=== PATIENT | male | born 1960 | race Caucasian/White ===

== ENCOUNTER 2019-01-18 20:31 | Emergency (ER) | payer OTHER ==
--- NOTE | 2019-01-18 20:39 | PDOC ---
History of Present Illness - History of Present Illness Initial Comments: 01/18/19 22:16 58yo M hx HLD, HTN, and CAD on aspirin presents from home c/o pain in L shoulder x2wks and L neck swelling x2days. Pt states L shoulder pain started 2 weeks ago gradually, constant, stabbing type in anterior shoulder, not improved by motrin or tylenol or advil. Pt went to Ortho 2 weeks ago and X-Ray was taken and was negative. Pain has gradually gotten worse the last 2 days and pt states he now can't even move his shoulder/arm. Denies heavy lifting, trauma, repetitive movements, or falls. 3 days ago the same pain began in his R anterior shoulder, but milder, without any trauma/inciting event. Then 2 days ago pt woke up with a swelling and pain in his L neck, cough and some spitting up, F/C, sore throat, sneezing, runny nose, hoarse voice, and congestion. Endorses chronic intermittent L-sided burning chest pain lasting 2-3 minutes after eating, last happened yesterday. Pt had nuclear stress test 2 weeks ago. Endorses dysuria x1wk, chronic unchanged back pain, and 3mos of b/l feet and hand tingling that is constant better when he shakes them. Denies sick contacts , recent travel, abdominal pain, MCNEIL, dizziness, pain with swallowing, inability to swallow secretions, N/V, SOB, hematuria, blood in stool, D/C, focal weakness. Pt states he recently got laid off from his job making [employer] Lives in [place]. Endorses hx of smoking, quit 8yrs ago. PCP - Fredo Chase <Paulette Chino - Last Filed: 01/18/19 22:16> <Haile Aquino I - Last Filed: 01/18/19 23:11> - General Chief Complaint: Pain, Acute Stated Complaint: PAIN IN LEFT SHOULDER, NECK AND ARM X 2 WEEKS Time Seen by Provider: 01/18/19 20:37 Past History <Paulette Chino - Last Filed: 01/18/19 22:16> <Haile Aquino I - Last Filed: 01/18/19 23:11> - Past Medical History Allergies/Adverse Reactions: Allergies Allergy/AdvReac Type Severity Reaction Status Date / Time Penicillins Allergy Verified 01/18/19 20:33 Home Medications: Ambulatory Orders Unobtainable 01/18/19 Review of Systems - Review of Systems Comments:: 01/18/19 22:22 Constitutional: Positive for chills, fever, fatigue. HENT: Positive for sore throat, hoarse voice, rhinorrhea, congestion. Eyes: Negative for visual disturbance. Respiratory: Positive for cough. Negative for shortness of breath, and wheezing. Cardiovascular: Positive for chest pain. Negative for palpitations, and leg swelling. Gastrointestinal: Negative for abdominal pain, blood in stool, constipation, diarrhea, nausea, and vomiting. Genitourinary: Positive for dysuria. Negative for flank pain, and hematuria. Musculoskeletal: Positive for back pain and L-sided neck pain and b/l shoulder pain. Negative for myalgias. Skin: Negative for rash. Neurological: Positive for numbness/tingling of b/l hands and feet. Negative for light-headedness, dizziness, syncope, weakness, and headaches. Psychiatric/Behavioral: Negative for behavioral problems and confusion. <Paulette Chino - Last Filed: 01/18/19 22:16> *Physical Exam - Physical Exam Comments: 01/18/19 22:25 Gen: Alert, NAD, comfortable-appearing. HEENT: PERRL, EOMI, MMM, NCAT. No conjunctival pallor. Sclera are non-icteric + mild erythema but no exudates in oropharynx, uvula midline, tonsils nonedematous + hard, mobile, tender lymphadenopathy along L anterior cervical chain. CV: Regular rate and rhythm. No murmurs, rubs, or gallops. PULM: No resp distress. CTAB, no wheezes, rales, or rhonchi. ABD: soft, NT/ND, no rebound tenderness or guarding, no CVA tenderness. BACK: No TTP of c/t/l-spine. No step-offs or deformities. MSK: No bony deformities. 2+ pulses in all extremities. L shoulder: diffuse TTP, decreased ROM 2/2 discomfort, distally neurovascularly intact R shoulder: mild TTP anteriorly, full ROM, distally neurovascularly intact NEURO: AAOx3. PERRL. CN 2-12 intact. 5/5 strength in all extremities. Sensation to light touch intact in all extremities. No pronator drift. No dysmetria. No dysdiadochokinesia. No abnormal nystagmus. No skew deviation. Normal gait. EXTREMITIES: No cyanosis. No clubbing. No edema. No calf tenderness. PSYCH: Affect slightly abnormal. Normal mood and thought pattern. SKIN: Warm and dry. Normal capillary refill. No rashes. No jaundice. <Paulette Chino - Last Filed: 01/18/19 22:16> - Vital Signs Last Vital Signs Temp Pulse Resp BP Pulse Ox 98.3 F 80 15 157/98 99 01/18/19 20:34 01/18/19 20:34 01/18/19 20:34 01/18/19 20:34 01/18/19 20:34 <Haile Aquino I - Last Filed: 01/18/19 23:11> Heart Score/ECG Review - ECG Impressions Comment:: 01/18/19 21:53 NSR, 64bpm, normal axis, no GRACE/TWIs <Paulette Chino - Last Filed: 01/18/19 22:16> ED Treatment Course - LABORATORY CBC & Chemistry Diagram: 01/18/19 21:30 01/18/19 21:30 <Paulette Chino - Last Filed: 01/18/19 22:16> - LABORATORY CBC & Chemistry Diagram: 01/18/19 21:30 01/18/19 22:00 - ADDITIONAL ORDERS Additional order review: Laboratory Results 01/18/19 01/18/19 01/18/19 22:00 22:00 21:30 Sodium 137 Cancelled Potassium 4.9 Cancelled Chloride 105 Cancelled Carbon Dioxide 23 Cancelled Anion Gap 9 Cancelled BUN 25.0 H Cancelled Creatinine 0.7 Cancelled Est GFR (CKD-EPI)AfAm 119.72 Cancelled Est GFR (CKD-EPI)NonAf 103.30 Cancelled Random Glucose 84 Cancelled Calcium 9.6 Cancelled Total Bilirubin 1.4 H Cancelled AST 33 Cancelled ALT 20 Cancelled Alkaline Phosphatase 67 Cancelled Creatine Kinase 125 Cancelled Troponin I < 0.03 Total Protein 7.6 Cancelled Albumin 4.3 Cancelled Urine Color Urine Appearance Urine pH Urine Protein Urine Glucose (UA) Urine Ketones Urine Blood Urine Nitrite Urine Bilirubin Urine Urobilinogen Ur Leukocyte Esterase Urine RBC Urine WBC Ur Transition Epith Cell 01/18/19 01/18/19 21:30 21:16 Sodium Potassium Chloride Carbon Dioxide Anion Gap BUN Creatinine Est GFR (CKD-EPI)AfAm Est GFR (CKD-EPI)NonAf Random Glucose Calcium Total Bilirubin AST ALT Alkaline Phosphatase Creatine Kinase Troponin I Cancelled Total Protein Albumin Urine Color Yellow Urine Appearance Clear Urine pH 5.5 Urine Protein Negative Urine Glucose (UA) Negative Urine Ketones Negative Urine Blood 1+ H Urine Nitrite Negative Urine Bilirubin Negative Urine Urobilinogen 0.2 Ur Leukocyte Esterase Negative Urine RBC 5-10 Urine WBC 0-2 Ur Transition Epith Cell Rare 01/18/19 21:30 RBC 4.45 MCV 94.2 MCHC 33.5 RDW 12.1 MPV 8.3 Neutrophils % 60.3 Lymphocytes % 22.8 Monocytes % 11.0 H Eosinophils % 5.1 H Basophils % 0.8 - RADIOLOGY Radiology Studies Ordered: Category Date Time Status CHEST PA & LAT [RAD] Stat Radiology 01/18/19 21:07 Taken - Medications Given in the ED: ED Medications Discontinued Medications Generic Name Dose Route Start Last Admin Trade Name Freq PRN Reason Stop Dose Admin Sodium Chloride 1,000 mls @ 1,000 mls/hr 01/18/19 21:12 01/18/19 21:40 Normal Saline - IV 01/18/19 22:11 1,000 mls/hr .Q1H ONE Administration Ketorolac Tromethamine 30 mg 01/18/19 21:12 01/18/19 21:40 Toradol Injection - IVPUSH 01/18/19 21:13 30 mg ONCE ONE Administration <Haile Aquino I - Last Filed: 01/18/19 23:11> Medical Decision Making - Medical Decision Making 58yo M hx HLD, HTN, and CAD on aspirin presents from home with pain in L shoulder x2wks, R shoulder x3 days, and URI-like sx x2days. Hemodynamically stable, afebrile, TTP of b/l shoulders with decreased ROM of L shoulder 2/2 pain , mild erythema of posterior oropharynx with L anterior cervical lymphadenopathy. Lymphadenopathy, rhinorrhea, cough, and sore throat most likely viral pharangitis or URI - no exudates or fever concerning for strep. Shoulder pain most likely musculoskeletal - low concern for fx or dislocation due to lack of trauma/inciting event - evaluate in CXR. Also consider arthritis or other musculoskeletal etiologies. Low concern for ACS/WV, but due to RFs and CP, r/o with EKG and cardiac profile. R/o UTI with UA due to dysuria. -EKG -CBC, CMP, cardiac profile, UA/UC, BCx -CXR (also shoulders) -Toradol for pain -IVF -Dispo: pending w/u 01/18/19 21:53 EKG reviewed. NSR, 64bpm, normal axis, no GRACE/TWIs <Paulette Chino - Last Filed: 01/18/19 22:16> *DC/Admit/Observation/Transfer <Paulette Chino - Last Filed: 01/18/19 22:16> - Discharge Dispostion Decision to Admit order: No <Haile Aquino I - Last Filed: 01/18/19 23:11> Diagnosis at time of Disposition: Viral syndrome, Left shoulder pain - Discharge Dispostion Disposition: HOME Condition at time of disposition: Stable - Patient Instructions Additional Instructions: For the sore throat and body aches take Tylenol or Motrin. For the shoulder take the medication your doctor prescribed and follow-up with the orthopedist. Return to the emergency department immediately with ANY new, persistent or worsening symptoms. Continue any medications as previously prescribed by your physician. You should follow up with your primary doctor as soon as possible regarding today's emergency department visit. . Please make sure your doctor reviews the results of your emergency evaluation. Thank you for coming to the Emergency Department today for your care. It was a pleasure to see you today. Please note that your evaluation is INCOMPLETE until you follow-up with your doctor.
[2019-01-18 20:46] VITALS: BP 157/98; PULSE 80; TEMP 98.3; BMI 28.3
[2019-01-18] MEDS ORDERED: KETOROLAC TROMETHAMINE 30 MG/1 ML VIAL IVPUSH ONE (21:12)
[2019-01-18] MEDS ORDERED: SODIUM CHLORIDE 1,000 ML IV ONE (21:12)
[2019-01-18] MEDS ORDERED: KETOROLAC TROMETHAMINE 30 MG/1 ML VIAL ONE (21:36)
[2019-01-18 21:39] LABS: EPITHELIAL CELLS RARE /hpf
[2019-01-18 21:43] LABS: BASO % 0.8 % (0-2.0); EOS % 5.1 % (0-4.5); HEMATOCRIT 41.9 % (35.4-49); LYMPH % 22.8 % (8-40); MCH 31.5 pg (25.7-33.7); MCHC 33.5 g/dl (32.0-35.9); MEAN CELL VOLUME 94.2 fl (80-96); MEAN PLT VOLUME 8.3 fl (7.5-11.1); NEUT % 60.3 % (42.8-82.8); PLATELET COUNT 291 K/MM3 (134-434); RBC 4.45 M/mm3 (4.00-5.60); RDW 12.1 % (11.9-15.9); WHITE BLOOD COUNT 11.6 K/mm3 (4.0-10.8)
--- NOTE | 2019-01-18 21:47 | PDOC ---
Documentation entered by Bashir Verdugo SCRIBE, acting as scribe for Haile Aquino MD. Haile Aquino MD: This documentation has been prepared by the Lucina cartwright Andrys, SCRIBE, under my direction and personally reviewed by me in its entirety. I confirm that the documentation accurately reflects all work, treatment, procedures, and medical decision making performed by me. Attending Attestation - Resident Resident Name: UmameiPaulette - ED Attending Attestation I have performed the following: I have examined & evaluated the patient, The case was reviewed & discussed with the resident, I agree w/resident's findings & plan, Exceptions are as noted - HPI HPI: 01/18/19 21:41 The patient is a 58 year old male with a significant past medical history of HTN , HLD, and CAD who present to the ED with left shoulder pain, cold like symptoms , and left neck swelling. Patient states he developed progressively worsening left shoulder pain 2 weeks ago. He states the left shoulder pain is stabbing in sensation and that he cannot move his left arm secondary to pain. Patient saw orthopedists and had a negative XRay of the left shoulder. He states he developed pain to his right shoulder 3 days ago. Denies recent trauma, fall or injury. 2 days ago, patient developed swelling to the left side of his neck, cough, subjective fever, chills, sore throat, hoarse voice and congestion. He also reports and episode of intermittent chest pain that lasted 3 minutes before residing last night. Denies hematuria or change in urinary output. Denies back pain. Denies any other symptoms. PAST MEDICAL HISTORY: HTN, HLD, and CAD PAST SURGICAL HISTORY: no significant history FAMILY HISTORY: no pertinent history SOCIAL HISTORY: Pt lives with family and is employed. MEDICATIONS: reviewed ALLERGIES: As per nursing notes General: + fever, chills. No weakness, no weight loss HEENT: + sore throat, hoarse voice, congestion. No change in vision. No ear pain Cardiovascular: No chest pain or shortness of breath Respiratory: + cough. No wheezing. Gastrointestinal: no nausea, vomiting, diarrhea or constipation, No rectal bleeding Genitourinary: No dysuria, hematuria, or frequency Musculoskeletal: + B/L shoulder pain, neck swelling. Neurologic: No headache, vertigo, dizziness or loss of consciousness Psychiatric: nor depression Skin: No rashes or easy bruising Endocrine: no increased thirst or abnormal weight change Allergic: no skin or latex allergy All other systems reviewed and normal - Physicial Exam PE: 01/18/19 21:41 General: Well-nourished well-developed individual, no acute distress HEENT: Throat: + mild erythema in the posterior oropharynx. Normal, tonsils normal, no exudate Neck: Supple, no meningeal signs, no lymphadenopathy Eyes::Pupils equal reactive and round, extraocular motion intact Chest: Nontender to palpation Cardiac: S1-S2 normal, regular rate and rhythm, no murmurs rubs or gallops Respiratory: Lungs clear to auscultation bilateral Abdomen: Soft, nondistended, normal bowel sounds, nontender to palpation diffusely Extremities: + Left shoulder there is tenderness diffusely on palpation, decreased ROM secondary to discomfort. Right shoulder, mild tenderness on palpation anteriorly. Warm, dry, no cyanosis, clubbing, or edema Skin: No rashes Neuro: Alert and oriented x3, nonfocal exam, grossly intact, normal gait Psych: Normal mood and affect - Medical Decision Making 01/18/19 21:45 Assessment and plan: This is a 58-year-old male who comes in with multiple complaints. Patient's most prominent complaints are bilateral shoulder pain left greater than right that is been going on for 2 weeks. Patient otherwise is complaining of upper respiratory/viral type symptoms. Workup was initiated including EKG, chest x-ray, CBC, comp, cardiac enzymes 01/18/19 23:15 Patient's workup was essentially normal he had a normal EKG, CBC had a mildly elevated white count with a monocytosis most likely secondary to a viral etiology.
[2019-01-18 22:50] LABS: ALBUMIN 4.3 g/dl (3.4-5.0); BILIRUBIN,TOTAL 1.4 mg/dl (0.2-1); CALCIUM 9.6 mg/dl (8.5-10); CREATININE 0.7 mg/dl (0.55-1.3); TOT PROT 7.6 g/dl (6.4-8.2)
[2019-01-18 22:53] LABS: POTASSIUM 4.9 mmol/L (3.5-5.1)
--- NOTE | 2019-01-19 11:53 | EKG ---
Test Reason : Blood Pressure : / mmHG Vent. Rate : 064 BPM Atrial Rate : 064 BPM P-R Int : 172 ms QRS Dur : 096 ms QT Int : 426 ms P-R-T Axes : 050 039 013 degrees QTc Int : 439 ms NORMAL SINUS RHYTHM NORMAL ECG NO PREVIOUS ECGS AVAILABLE Confirmed by CELSO BAÑUELOS, SANDRA ([id number]) on 01/19/2019 11:53:30 AM Referred By: CALEB CAMARENA Confirmed By:SANDRA HOUSTON MD
== END 2019-01-18 23:27 | disposition home or self-care (01) ==
LOC: FER 20:31
PROC: 3E0333Z Introduction of Anti-inflammatory into Peripheral Vein, Percutaneous Approach (ICD-10-PCS; principal; 2019-01-18)
PROC: 3E0337Z Introduction of Electrolytic and Water Balance Substance into Peripheral Vein, Percutaneous Approach (ICD-10-PCS; 2019-01-18)
DX: B34.9 Viral infection, unspecified (principal); M25.512 Pain in left shoulder; I10 Essential (primary) hypertension; I25.10 Atherosclerotic heart disease of native coronary artery without angina pectoris; E78.5 Hyperlipidemia, unspecified
CPT/HCPCS: 36415; 71046-TC-FY; 80053; 81003; 81015; 82550; 84484; 85025; 87040; 87086; 93005; 99282-25; J7030

== ENCOUNTER 2022-03-27 08:04 | Day surgery (SDC) | payer OTHER ==
[2022-03-23 11:46] VITALS: BMI 32.7
[2022-03-27] MEDS ORDERED: CYCLOPENTOLATE HCL 1% OPHTH SOLN 2 ML BOTTLE ONE (08:14)
[2022-03-27] MEDS ORDERED: TROPICAMIDE 1% OPHTH SOLN 15 ML BOTTLE ONE (08:14)
[2022-03-27] MEDS ORDERED: KETOROLAC TROMETHAMINE 0.5% EYE DROP 1 DROP DROPS ONE (08:14)
[2022-03-27] MEDS ORDERED: PHENYLEPHRINE 2.5% OPHTH SOLN 15 ML BOTTLE ONE (08:14)
[2022-03-27] MEDS ORDERED: OFLOXACIN 0.3% OPHTHALMIC SOLUTION 5 ML BOTTLE ONE (08:14)
[2022-03-27] MEDS: OFLOXACIN 0.3% OPHTHALMIC SOLUTION 5 ML BOTTLE OD SCH ×3 (08:35→08:45)
[2022-03-27] MEDS: PHENYLEPHRINE 2.5% OPHTH SOLN 15 ML BOTTLE OD SCH ×3 (08:35→08:45)
[2022-03-27] MEDS: KETOROLAC TROMETHAMINE 0.5% EYE DROP 1 DROP DROPS OD SCH ×3 (08:35→08:45)
[2022-03-27] MEDS: TROPICAMIDE 1% OPHTH SOLN 15 ML BOTTLE OD SCH ×3 (08:35→08:45)
[2022-03-27] MEDS: CYCLOPENTOLATE HCL 1% OPHTH SOLN 2 ML BOTTLE OD SCH ×3 (08:35→08:45)
[2022-03-27] MEDS ORDERED: POVIDONE-IODINE 5% OPHTHALMIC PREP 30 ML SOLUTION ONE (08:58)
[2022-03-27] MEDS ORDERED: BACITRACIN/POLYMYXIN OPH OINT 3.5 GM TUBE ONE (08:58)
[2022-03-27] MEDS ORDERED: TETRACAINE 0.5% OPHTH SOLN 2 ML BOTTLE ONE (08:58)
[2022-03-27] MEDS ORDERED: BETAXOLOL HCL 0.25% OPHTHALMIC 10 ML DROPSBTL ONE (08:58)
[2022-03-27] MEDS ORDERED: EPI-SHUGARCAINE (EPINEPHRINE 0.025% & LIDOCAINE-PF 0.75%) 4ML ONE (08:58)
[2022-03-27] MEDS ORDERED: NEO/POLYMYX B SULF/DEXAMETH OPHTHALMIC 5ML BOTTLE ONE (08:59)
[2022-03-27] MEDS ORDERED: MIDAZOLAM HCL 2 MG/2 ML SINGLE DOSE VIAL ONE (10:36)
[2022-03-27] MEDS ORDERED: ACETAMINOPHEN 325 MG TABLET (FP) PO PRN (11:28)
[2022-03-27 11:35] VITALS: PULSE 68; RESP 18; TEMP 97.1
[2022-03-27 11:55] VITALS: BP 152/84
== END 2022-03-27 11:56 | disposition home or self-care (01) ==
LOC: FASU 08:04
PROVIDERS: ATTEND Ophthalmology
PROC: 08RJ3JZ Replacement of Right Lens with Synthetic Substitute, Percutaneous Approach (ICD-10-PCS; principal; 2022-03-27 10:52)
DX: H25.9 Unspecified age-related cataract (principal)
CPT/HCPCS: 66984; V2632

== ENCOUNTER 2022-04-10 06:52 | Day surgery (SDC) | payer OTHER ==
[2022-04-03 09:58] VITALS: BMI 32.7
[2022-04-10] MEDS ORDERED: OFLOXACIN 0.3% OPHTHALMIC SOLUTION 5 ML BOTTLE ONE (07:13)
[2022-04-10] MEDS ORDERED: TROPICAMIDE 1% OPHTH SOLN 15 ML BOTTLE ONE (07:13)
[2022-04-10] MEDS ORDERED: PHENYLEPHRINE 2.5% OPHTH SOLN 15 ML BOTTLE ONE (07:13)
[2022-04-10] MEDS ORDERED: CYCLOPENTOLATE HCL 1% OPHTH SOLN 2 ML BOTTLE ONE (07:13)
[2022-04-10] MEDS ORDERED: KETOROLAC TROMETHAMINE 0.5% EYE DROP 1 DROP DROPS ONE (07:13)
[2022-04-10] MEDS ORDERED: TETRACAINE 0.5% OPHTH SOLN 2 ML BOTTLE ONE (07:20)
[2022-04-10] MEDS ORDERED: BETAXOLOL HCL 0.25% OPHTHALMIC 10 ML DROPSBTL ONE (07:20)
[2022-04-10] MEDS ORDERED: BACITRACIN/POLYMYXIN OPH OINT 3.5 GM TUBE ONE (07:20)
[2022-04-10] MEDS ORDERED: EPI-SHUGARCAINE (EPINEPHRINE 0.025% & LIDOCAINE-PF 0.75%) 4ML ONE (07:20)
[2022-04-10] MEDS ORDERED: POVIDONE-IODINE 5% OPHTHALMIC PREP 30 ML SOLUTION ONE (07:20)
[2022-04-10] MEDS ORDERED: NEO/POLYMYX B SULF/DEXAMETH OPHTHALMIC 5ML BOTTLE ONE (07:20)
[2022-04-10] MEDS: KETOROLAC TROMETHAMINE 0.5% EYE DROP 1 DROP DROPS OS SCH ×3 (07:30→07:40)
[2022-04-10] MEDS: OFLOXACIN 0.3% OPHTHALMIC SOLUTION 5 ML BOTTLE OS SCH ×3 (07:30→07:40)
[2022-04-10] MEDS: TROPICAMIDE 1% OPHTH SOLN 15 ML BOTTLE OS SCH ×3 (07:30→07:40)
[2022-04-10] MEDS: CYCLOPENTOLATE HCL 1% OPHTH SOLN 2 ML BOTTLE OS SCH ×3 (07:30→07:40)
[2022-04-10] MEDS: PHENYLEPHRINE 2.5% OPHTH SOLN 15 ML BOTTLE OS SCH ×3 (07:30→07:40)
[2022-04-10 07:35] VITALS: RESP 16
[2022-04-10] MEDS ORDERED: MIDAZOLAM HCL 2 MG/2 ML SINGLE DOSE VIAL ONE (09:29)
[2022-04-10] MEDS ORDERED: ACETAMINOPHEN 325 MG TABLET (FP) PO PRN (10:36)
[2022-04-10 10:45] VITALS: TEMP 97.7
[2022-04-10 11:06] VITALS: BP 137/85; PULSE 68
== END 2022-04-10 11:15 | disposition home or self-care (01) ==
LOC: FASU 06:52
PROVIDERS: ATTEND Ophthalmology
PROC: 08RK3JZ Replacement of Left Lens with Synthetic Substitute, Percutaneous Approach (ICD-10-PCS; principal; 2022-04-10 09:45)
DX: H25.89 Other age-related cataract (principal)
CPT/HCPCS: 66984; V2632

== ENCOUNTER 2022-05-24 08:48 | Day surgery (SDC) | payer OTHER ==
[2022-05-23 09:04] VITALS: BMI 34.2
[2022-05-24 10:14] VITALS: RESP 20; TEMP 97.7
[2022-05-24 10:16] VITALS: BP 138/68; PULSE 72
== END 2022-05-24 11:20 | disposition home or self-care (01) ==
LOC: FASU-ENDO 08:48
PROVIDERS: ATTEND Internal Medicine Gastroenterology
PROC: 0DJD8ZZ Inspection of Lower Intestinal Tract, Via Natural or Artificial Opening Endoscopic (ICD-10-PCS; principal; 2022-05-24 09:37)
DX: Z12.11 Encounter for screening for malignant neoplasm of colon (principal); K57.30 Diverticulosis of large intestine without perforation or abscess without bleeding